=== PATIENT | female | born 1955 | race African-American/Black ===

== ENCOUNTER 2018-12-12 06:52 | Day surgery (SDC) | payer MEDICARE, OTHER ==
[~2018-12-12] VITALS: Ht 165.1 cm; Wt 86.5 kg
[~2018-12-12 06:52] MED LIST: AMLO10TA7 PO; AMOX250C4 PO; ASPI-1182 PO; CITA-106 PO; FAMO20 PO; FLUT16H NASAL; LISI-662 PO; METO50 PO; MOME0.13 PO; MONT10TA21 PO; OXYC5TAB3 PO; PRAV20TA4 PO; SODIUM CHLORIDE 0.9% 1,000 ML IV ONE; TRAZ-220 PO
[2018-12-12] MEDS ORDERED: LIDOCAINE 4% 50 ML SOLUTION TP ONE (06:53)
[2018-12-12] MEDS ORDERED: BENZOCAINE 20% 50 MCG/SPRAY 57 GM TP ONE (06:53)
[2018-12-12] MEDS ORDERED: ALBUTEROL SULFATE 2.5 MG/0.5 ML NEB SOLUTION NEB ONE (06:53)
[2018-12-12] MEDS ORDERED: LIDOCAINE 2% 30 ML JELLY TP ONE (06:53)
[2018-12-12] MEDS ORDERED: SODIUM CHLORIDE 0.9% 1,000 ML IV ONE (07:00)
[2018-12-12] MEDS ORDERED: MIDAZOLAM HCL 2 MG/2 ML VIAL ONE (08:22)
[2018-12-12] MEDS ORDERED: FentaNYL CITRATE-PF 100 MCG/2 ML VIAL ONE (08:23)
[2018-12-12] MEDS ORDERED: MethylPREDNISolone SOD SUCC 125 MG/2 ML VIAL IVP ONE (09:30)
[2018-12-12] MEDS ORDERED: MethylPREDNISolone SOD SUCC 125 MG/2 ML VIAL ONE (09:40)
[2018-12-12] MEDS ORDERED: OXYGEN THERAPY IH SCH (20:00)
== END 2018-12-12 11:15 | disposition home or self-care (01) ==
LOC: SURGERY 06:52
PROVIDERS: ATTEND Internal Medicine Critical Care Medicine
DX: R05 Cough (principal); J47.9 Bronchiectasis, uncomplicated; J98.8 Other specified respiratory disorders; J34.89 Other specified disorders of nose and nasal sinuses; J38.4 Edema of larynx; B37.0 Candidal stomatitis; I10 Essential (primary) hypertension; Z79.899 Other long term (current) drug therapy
CPT/HCPCS: 31623; 31624; 71045; 87015; 87070; 87101; 87205; 87206; 87220; 88108; 88312; J2250; J2930; J3010; J7030